=== PATIENT | female | born 1975 ===

== ENCOUNTER 2017-08-01 14:05 | Emergency (ER) | payer BC ==
[~2017-08-01 14:05] MED LIST: Iopamidol 370 76% 100 ML VIAL ONE
[2017-08-01] MEDS ORDERED: Clindamycin/D5W 600 mg/50 ml Premix Bag ONE (15:06)
[2017-08-01 15:25] LABS: #Basophils 0.1 thou/uL (0.0-0.2); #Lymphocytes 1.9 thou/uL (1.20-3.40); #Neutrophils 15.7 thou/uL (1.40-6.50); %Basophils 0.6 % (0.0-1.0); %Monocytes 5.4 % (0.0-10.0); Hemoglobin 11.6 g/dL (12.0-16.0); Mean Corpuscular HGB CONC 34.4 g/dL (32.0-36.0); Mean Corpuscular Hemoglobin 28.1 pg (27.0-31.0); Mean Corpuscular Volume 81.7 fl (81.0-99.0); Mean Platelet Volume 7.9 fL (7.4-10.4); Platelet Count 230 thou/uL (130-400); RBC Distribution Width 11.6 % (11.5-14.5); Red Blood Cell (RBC) Count 4.13 mill/uL (4.20-5.40); White Blood Cell (WBC) Count 18.7 thou/uL (4.8-10.8)
[2017-08-01 15:34] LABS: Anion Gap 14 mmol/L (10-20); BUN (Urea Nitrogen) 10 mg/dL (7.0-18.7); Calc. Creatinine Clearance 0 mL/min (70-130); Calcium 8.9 mg/dL (7.8-10.44); Carbon Dioxide 22 mmol/L (22-29); Chloride 100 mmol/L (98-107); Estimated GFR-MDRD 90; Glucose 120 mg/dL (70-105); Potassium 3.5 mmol/L (3.5-5.1); Sodium 132 mmol/L (136-145)
--- NOTE | 2017-08-01 15:57 | CT ---
CT FACE WITH CONTRAST: Date: 08/01/17 HISTORY: Evaluate for abscess. Swollen. Headache. COMPARISON: None. FINDINGS: The globes are normal. The intraconal fat is normal. No abnormal enhancing intraparenchymal lesion within the brain. Multiple enhancing intraparotid lymph nodes. Multiple small anterior cervical lymph nodes bilaterally . Posterior cervical lymph nodes bilaterally. The internal carotid arteries are patent. No abscess. Mandible is intact. There is fluid within the left mastoid air cells dependently. Mild hyperenhancement of the left exter nal ear. No osseous erosions. There is low grade asymmetric hyperenhancement of the skin soft tissues over the left parotid gland. There is a small enhancing mass within the posterior parotid gland measuring 7.0 mm, which does not d efinitively have a fatty hilum. IMPRESSION: 1. Findings suggestive of otitis externa with reactive fluid in the left mastoid. No abscess. 2. 7.0 mm mass in the left parotid gland, does not definitively have a fatty hilum and is of uncerta in nature. Nonemergent ENT consultation should be performed. 3. No osseous erosions of the mastoid. 4. Likely reactive bilateral anterior and posterior cervical lymph nodes. Follow-up recommended. Lym phoproliferative disorder cannot be totally excluded, although at this point, given the infectious fi ndings, these are likely reactive. POS: [facility]
[2017-08-01] MEDS ORDERED: Ciprofloxacin Lactate/D5W 400 mg/200 ml Premix ONE (16:54)
[2017-08-01] MEDS ORDERED: Gentamicin Ophth Soln 0.3% 5 ml Bottle ONE (17:50)
[2017-08-01] MEDS ORDERED: Dexamethasone 4 mg/ml Vial ONE (17:56)
== END 2017-08-01 18:09 | disposition home or self-care (01) ==
LOC: SCSER 14:05
DX: L03.811 Cellulitis of head [any part, except face] (principal); H60.13 Cellulitis of external ear, bilateral
CPT/HCPCS: 70487; 80048; 83605; 85025; 87040; 96365; 96366; 96367; 96368; 96372; J0744; J1100; J3370; J3490